=== PATIENT | male | born 1970 | race Caucasian/White ===

== ENCOUNTER 2016-09-08 14:32 | Emergency (ER) | payer SELFPAY ==
[~2016-09-08] VITALS: Ht 170.2 cm; Wt 68.0 kg
[~2016-09-08 14:32] MED LIST: 1-ME1LIQ PO; ASPI325T PO; CARV12.5 PO; CLON0.3T PO; LIPI20TA PO; PRIL40CA PO
[2016-09-08 14:35] VITALS: BP 165/120; PULSE 89; RESP 16; TEMP 98.4; O2SAT 99
[2016-09-08 14:53] VITALS: BP 163/113
[2016-09-08] MEDS ORDERED: OMEP40CA2 PO ×2 (14:56→15:01)
[2016-09-08] MEDS ORDERED: ASPI325T PO ×2 (14:56→15:01)
[2016-09-08] MEDS ORDERED: CARV12.5 PO ×2 (14:56→15:01)
[2016-09-08] MEDS ORDERED: CLON0.3T PO ×2 (14:56→15:01)
[2016-09-08] MEDS ORDERED: NORV2.5T PO (14:56)
[2016-09-08] MEDS ORDERED: LIPI20TA PO ×2 (14:56→15:01)
[2016-09-08] MEDS ORDERED: AMLO10 PO ×2 (15:00→15:01)
--- NOTE | 2016-09-08 15:02 | PD ---
HPI Chief Complaint: Medication Refill Request Time Seen by Provider: 14:57 Travel History International Travel<30 days: No Contact w/Intl Traveler<30days: No Traveled to known affect area: No History of Present Illness HPI Patient is a 45-year-old male with history of HTN, HLD, GERD who presents the emergency department with requests of medication refill. Patient is a patient of Dr. Quinones in our community clinic. States that he has been having difficulty getting in to see her, and ran out of his medications approximately one month ago. For the last several days patient has been having burning pain in the epigastrium with nausea and occasional vomiting. He attributes this to running out of his omeprazole. He previously had symptoms like this prior to taking omeprazole. He has been having normal bowel movements, no headache, chest pain. PFSH Past Medical History Arthritis: No Asthma: No Autoimmune Disease: No Blood Disorders: No Anxiety: No Depression: No Heart Rhythm Problems: Yes (SINUS ARRHYTHMIA) Cancer: No Cardiovascular Problems: Yes (HTN) Chemotherapy: No Chest Pain: Yes Congestive Heart Failure: Yes COPD: No Cerebrovascular Accident: No Diabetes: Yes (Diet controlled borderline diabetic ) Patient Takes Glucophage: No Diminished Hearing: No Endocrine: Yes Gastrointestinal Disorders: Yes GERD: Yes Glaucoma: No Genitourinary: No Headaches: Yes Hepatitis: Yes Hiatal Hernia: Yes Hypertension: Yes Immune Disorder: No Kidney Stones: No Musculoskeletal: No Neurologic: Yes Psychiatric: No Reproductive: No Respiratory: Yes Immunizations Current: Yes Migraines: Yes Myocardial Infarction: No Radiation Therapy: No Renal Failure: No Seizures: No Sickle Cell Disease: No Sleep Apnea: No Thyroid Disease: No Ulcer: No Tetanus Vaccination: < 5 Years Influenza Vaccination: Yes Past Surgical History Abdominal Surgery: No AICD: No Appendectomy: No Arteriovenous Shunt: No Cardiac Surgery: No Cholecystectomy: No Ear Surgery: No Endocrine Surgery: No Eye Surgery: No Genitourinary Surgery: No Gynecologic Surgery: No Insulin Pump: No Joint Replacement: No Neurologic Surgery: No Oral Surgery: No Pacemaker: No Thoracic Surgery: No Other Surgery: Yes (MRSA LEFT HAND) Social History Alcohol Use: No (~1 6PK PER WEEK) Tobacco Use: Yes (1/4 PACK DAY) Substance Use: No (MARIJUANA, COCAINE, DENIES USE ) Allergies-Medications (Allergen,Severity, Reaction): Coded Allergies: Coconut (Verified Allergy, Severe, Anaphylaxis, 7/28/17) Mushroom (Verified Allergy, Severe, Anaphylaxis, 09/08/16) Reported Meds & Prescriptions Reported Meds & Active Scripts Active Norvasc (Amlodipine Besylate) 10 Mg Tab 10 Mg PO DAILY Lipitor (Atorvastatin Calcium) 20 Mg Tab 20 Mg PO HS Aspirin 325 Mg Tab 325 Mg PO DAILY Coreg (Carvedilol) 12.5 Mg Tab 12.5 Mg PO BID Clonidine (Clonidine HCl) 0.3 Mg Tab 0.3 Mg PO BID Omeprazole 40 Mg Cap 40 Mg PO DAILY Review of Systems Except as stated in HPI: all other systems reviewed are Neg Physical Exam Narrative GENERAL: Well-appearing male in no acute distress SKIN: Focused skin assessment warm/dry. HEAD: . Normocephalic. EYES: No scleral icterus. No injection or drainage. ENT: Mucous membranes pink and moist. NECK: Supple CARDIOVASCULAR: Regular rate and rhythm. Hypertensive RESPIRATORY: No accessory muscle use. GASTROINTESTINAL: Abdomen soft, non-tender, nondistended. MUSCULOSKELETAL: Normal gait NEUROLOGICAL: Awake and alert. Normal speech. PSYCHIATRIC: Appropriate mood and affect; insight and judgment normal. Data Data Last Documented VS Vital Signs Date Time Temp Pulse Resp B/P Pulse Ox O2 Delivery O2 Flow Rate FiO2 09/08/16 14:53 163/113 09/08/16 14:35 98.4 89 16 99 Orders Ondansetron Inj (Zofran Inj) (09/08/16 15:15) [facility] Medical Decision Making Medical Screen Exam Complete: Yes Emergency Medical Condition: Yes Medical Record Reviewed: Yes Differential Diagnosis 45-year-old male with history of HTN, HLD, GERD here with complaint of medication refill and nausea since running out of omeprazole and all his other medications one month ago. Differential includes medication refill, GERD, gastritis and less likely pancreatitis or hepatobiliary pathology given benign abdominal examination. Narrative Course Given Zofran for nausea. He was given refills of all of his home medications. Since her community clinic is closing in November, he was given information to follow up in [facility] to establish care. Patient was agreeable. Diagnosis Primary Impression: Hypertension Qualified Code: I10 - Essential hypertension Additional Impressions: Hyperlipidemia Qualified Code: E78.5 - Hyperlipidemia, unspecified hyperlipidemia type Medication refill Referrals: [facility] call for appointment Additional Instructions: Medications as prescribed. Call to establish care as discussed. You can get the Norvasc for free at [facility]. Med/Other Pt SpecificInfo: Prescription(s) given Scripts Amlodipine (Norvasc)10 Mg Tab10 Mg PO DAILY #30 TAB Ref 0 Prov:Lisette Aly MD 09/08/16 Atorvastatin (Lipitor)20 Mg Tab20 Mg PO HS #30 TAB Ref 0 Prov:Lisette Aly MD 09/08/16 Aspirin 325 Mg Poi426 Mg PO DAILY #30 TAB Ref 0 Prov:Lisette Aly MD 09/08/16 Carvedilol (Coreg)12.5 Mg Tab12.5 Mg PO BID #60 TAB Ref 0 Prov:Lisette Aly MD 09/08/16 Clonidine 0.3 Mg Tab0.3 Mg PO BID #60 TAB Ref 0 Prov:Lisette Aly MD 09/08/16 Omeprazole 40 Mg Cap40 Mg PO DAILY #30 CAP Ref 0 Prov:Lisette Aly MD 09/08/16 Disposition: 01 DISCHARGE HOME Condition: Stable Lisette Aly MD Sep 08, 2016 15:02
[2016-09-08] MEDS ORDERED: ONDANSETRON HCL 4 MG/2 ML VIAL IM ONE (15:15)
== END 2016-09-08 15:22 | disposition home or self-care (01) ==
LOC: PHED 14:32
DX: I10 Essential (primary) hypertension (principal); E78.5 Hyperlipidemia, unspecified; R10.13 Epigastric pain; R11.2 Nausea with vomiting, unspecified; R73.03 Prediabetes; Z76.0 Encounter for issue of repeat prescription; Z72.0 Tobacco use; Z87.19 Personal history of other diseases of the digestive system; Z86.79 Personal history of other diseases of the circulatory system; Z86.69 Personal history of other diseases of the nervous system and sense organs; Z87.09 Personal history of other diseases of the respiratory system
CPT/HCPCS: 96372; 99284; J2405

== ENCOUNTER 2016-09-28 09:13 | Emergency (ER) | payer SELFPAY ==
[~2016-09-28] VITALS: Ht 170.2 cm; Wt 69.8 kg
[~2016-09-28 09:13] MED LIST changes: -1-ME1LIQ PO; +AMLO10 PO; +OMEP40CA2 PO; -PRIL40CA PO
[2016-09-28 09:18] VITALS: BP 112/67; PULSE 66; RESP 16; TEMP 97.9; O2SAT 97
[2016-09-28] MEDS ORDERED: MEDR4PAK PO (09:32)
[2016-09-28] MEDS ORDERED: ACYC800T PO (09:32)
[2016-09-28] MEDS ORDERED: HYDR-3533 PO (09:32)
--- NOTE | 2016-09-28 09:32 | PD ---
HPI Chief Complaint: Skin Problem Time Seen by Provider: 09:28 Travel History International Travel<30 days: No Contact w/Intl Traveler<30days: No Traveled to known affect area: No History of Present Illness HPI 45-year-old male patient presents to the ER today with 1 week history of pain and rash on the left chest wall that has been worsening and then crusting over. He denies any fevers, shortness of breath, or any other symptoms. Modifying Factors: None Associated Signs & Symptoms: Left chest wall rash and pain Risk Factors: None PFSH Past Medical History Hx Anticoagulant Therapy: Yes (asa 325mg) Arthritis: No Asthma: No Autoimmune Disease: No Blood Disorders: No Anxiety: No Depression: No Heart Rhythm Problems: Yes (SINUS ARRHYTHMIA) Cancer: No Cardiovascular Problems: Yes (htn on meds, chf) Chemotherapy: No Chest Pain: Yes Congestive Heart Failure: Yes COPD: No Cerebrovascular Accident: No Diabetes: Yes (Diet controlled borderline diabetic ) Diminished Hearing: No Endocrine: Yes Gastrointestinal Disorders: Yes GERD: Yes Glaucoma: No Genitourinary: No Headaches: Yes Hepatitis: Yes Hiatal Hernia: Yes Hypertension: Yes Immune Disorder: No Kidney Stones: No Musculoskeletal: No Neurologic: Yes Psychiatric: No Reproductive: No Respiratory: Yes Immunizations Current: Yes Migraines: Yes Myocardial Infarction: No Radiation Therapy: No Renal Failure: No Seizures: No Sickle Cell Disease: No Sleep Apnea: No Thyroid Disease: No Ulcer: No Past Surgical History Abdominal Surgery: No AICD: No Appendectomy: No Arteriovenous Shunt: No Cardiac Surgery: No Cholecystectomy: No Ear Surgery: No Endocrine Surgery: No Eye Surgery: No Genitourinary Surgery: No Gynecologic Surgery: No Insulin Pump: No Joint Replacement: No Neurologic Surgery: No Oral Surgery: No Pacemaker: No Thoracic Surgery: No Other Surgery: Yes (MRSA LEFT HAND) Social History Alcohol Use: No (~1 6PK PER WEEK) Tobacco Use: Yes (1/4 PACK DAY) Substance Use: No (MARIJUANA, COCAINE, DENIES USE ) Allergies-Medications (Allergen,Severity, Reaction): Coded Allergies: coconut (Unverified Allergy, Severe, Anaphylaxis, 09/28/16) mushroom (Unverified Allergy, Severe, Anaphylaxis, 09/28/16) Reported Meds & Prescriptions Reported Meds & Active Scripts Active Norvasc (Amlodipine Besylate) 10 Mg Tab 10 Mg PO DAILY Lipitor (Atorvastatin Calcium) 20 Mg Tab 20 Mg PO HS Aspirin 325 Mg Tab 325 Mg PO DAILY Coreg (Carvedilol) 12.5 Mg Tab 12.5 Mg PO BID Clonidine (Clonidine HCl) 0.3 Mg Tab 0.3 Mg PO BID Omeprazole 40 Mg Cap 40 Mg PO DAILY Review of Systems Except as stated in HPI: all other systems reviewed are Neg Physical Exam Narrative GENERAL: Well-developed middle age white male patient currently in mild distress. Awake and oriented 3. SKIN: Focused skin assessment warm/dry. There is a notable vesicular rash with surrounding erythema that is in the left chest wall at around the dermatome of T 11. It is mildly tender to palpation and there is mild surrounding erythema. HEAD: Atraumatic. Normocephalic. EYES: Pupils equal and round. No scleral icterus. No injection or drainage. ENT: No nasal bleeding or discharge. Mucous membranes pink and moist. NECK: Trachea midline. No JVD. CARDIOVASCULAR: Regular rate and rhythm. No murmur appreciated. RESPIRATORY: No accessory muscle use. Clear to auscultation. Breath sounds equal bilaterally. GASTROINTESTINAL: Abdomen soft, non-tender, nondistended. Hepatic and splenic margins not palpable. MUSCULOSKELETAL: No obvious deformities. No clubbing. No cyanosis. No edema. NEUROLOGICAL: Awake and alert. No obvious cranial nerve deficits. Motor grossly within normal limits. Normal speech. PSYCHIATRIC: Appropriate mood and affect; insight and judgment normal. Data Data Last Documented VS Vital Signs Date Time Temp Pulse Resp B/P Pulse Ox O2 Delivery O2 Flow Rate FiO2 09/28/16 09:18 97.9 66 16 112/67 97 MDM Medical Decision Making Medical Screen Exam Complete: Yes Emergency Medical Condition: Yes Medical Record Reviewed: Yes Differential Diagnosis Allergic reaction versus shingles versus cellulitis Narrative Course The rash is consistent with shingles. At this point, my plan would be to give him treatment and symptom relief or pain. Return for any worsening in pain, infection, or new symptoms as needed. The plan has discussed with him and he states understanding. Diagnosis Primary Impression: Shingles rash Med/Other Pt SpecificInfo: Prescription(s) given Scripts Hydrocodone-Acetaminophen (Lortab)5-325 Mg Tab1-2 Tab PO Q6H PRN (PAIN) #15 TAB Ref 0 Prov:Leatha Heath MD 09/28/16 Methylprednisolone Dosepak (Medrol Dosepak)4 Mg Dspk4 Mg PO DIRECTED #1 DSPK Ref 0 Per Pharmacist direction Prov:Leatha Heath MD 09/28/16 Acyclovir 800 Mg Ans476 Mg PO 5 TIMES A DAY 7 Days Ref 0 Prov:Leatha Heath MD 09/28/16 Disposition: 01 DISCHARGE HOME Condition: Stable Leatha Heath MD Sep 28, 2016 09:32
== END 2016-09-28 09:45 | disposition home or self-care (01) ==
LOC: PHEFT 09:13
DX: B02.9 Zoster without complications (principal)
CPT/HCPCS: 99284